=== PATIENT | male | born 1985 | race Caucasian/White ===

== ENCOUNTER 2020-04-17 15:16 | Emergency (ER) | payer SELFPAY ==
[2020-04-17 19:12] LABS: HEMOGLOBIN 15.1 gm/dl (14.0-17.5); RED BLOOD COUNT 4.95 M/UL (4.20-5.50); WHITE BLOOD COUNT 13.6 K/UL (4.5-11.0)
[2020-04-17 19:29] LABS: BUN/CREATININE RATIO 17 (0-10)
[2020-04-17] MEDS ORDERED: TESSALON PERLE100 MG PO (20:47)
[2020-04-17] MEDS ORDERED: SINGULAIR10 MG PO (20:47)
[2020-04-17] MEDS ORDERED: Voltaren Gel 1 % TOP (20:47)
[2020-04-17] MEDS ORDERED: NORFLEX 100 MG100 MG PO (20:47)
== END 2020-04-17 20:58 | disposition home or self-care (01) ==
LOC: ER1 15:16
PROVIDERS: Physician Assistant Medical
DX: M54.5 Low back pain (principal); R05 Cough; F17.290 Nicotine dependence, other tobacco product, uncomplicated
CPT/HCPCS: 36415; 71046; 80053; 81001; 83690; 85025; 96374; 96375; 99284; J2270; J2405